=== PATIENT | female | born 1995 | race Caucasian/White ===

== ENCOUNTER → 2017-07-19 12:53 | Outpatient (CLI) | payer MEDICAID, SELFPAY ==
[2017-07-19 14:51] LABS: T4 Free Direct 1.03 ng/dL (0.76-1.46); Thyroid Stim Hormone (TSH) 1.69 uIU/mL (0.358-3.74)
== END ==
PROVIDERS: Family Provider Pediatrics; PCP Pediatrics; Visit Provider Pediatrics
DX: R63.5 Abnormal weight gain (principal)
CPT/HCPCS: 36415; 84439; 84443

== ENCOUNTER → 2018-03-30 15:12 | Outpatient (CLI) | payer MEDICAID, SELFPAY ==
--- NOTE | 2018-03-30 15:14 | RAD_ITS ---
STUDY: X-RAY - CERVICAL SPINE REASON FOR EXAM: Female, 22 years old. Neck pain radiating into right shoulder. TECHNIQUE: 6 view(s) of the cervical spine were obtained. COMPARISON: None FINDINGS: Normal anterior atlantoaxial articulation. Normal odontoid process. There is reversal of the normal lordotic curve, likely positional. Normal vertebral bodies and endplates. Normal disc space heights. Normal visualized intervertebral neuroforamina. The soft tissue structures are unremarkable. RAD/Cerv Spine 4 or 5 Views IMPRESSION: Reversal of the normal lordotic curve, likely positional. No other significant abnormality. Electronically Signed: Bean Fraire MD at 14:17 EST , Service support ,
--- NOTE | 2018-03-30 15:14 | RAD_ITS ---
STUDY: X-RAY - RIGHT HAND REASON FOR EXAM: Previous fracture. TECHNIQUE: 3 view(s) of the hand. COMPARISON: Radiographs 08/20/2015. FINDINGS: Normal radiocarpal articulation. Normal distal radioulnar joint. Normal visualized carpal bones. Normal carpal articulations Normal carpometacarpal articulation of the thumb. Normal second through fifth carpometacarpal joints. There is healed fracture deformity of the fifth metacarpal diaphysis with mild angulation without interval change. Normal metacarpophalangeal joint of the thumb. Normal interphalangeal joint of the thumb. Normal proximal and distal phalanges of the thumb. Normal metacarpophalangeal joints of the second through fifth fingers. Normal proximal and distal interphalangeal joints of the second through fifth fingers. Normal phalanges of the second through fifth fingers. The soft tissue structures are unremarkable. RAD/Hand Min 3 Views IMPRESSION: Healed fracture deformity of the fifth metacarpal. Electronically Signed: Parish Calix MD at 12:30 EST Tel , Service support ,
== END ==
PROVIDERS: Family Provider Pediatrics; PCP Pediatrics; Referring Provider Orthopaedic Surgery; Visit Provider Orthopaedic Surgery
DX: M79.641 Pain in right hand (principal); M54.2 Cervicalgia
CPT/HCPCS: 72050; 73130

== ENCOUNTER 2018-05-03 13:00 | Outpatient (RCR) | payer MEDICAID, SELFPAY ==
--- NOTE | 2018-04-06 18:10 | HP.OTEVAL ---
Patient's Visit Information EDEN REYES is a 22 year old F, referred to Occupational Therapy by Jessica Flores DO, with a diagnosis of h/o R 5th metacarpal fracture. Date of Evaluation: 04/06/18 Occupational Therapist: Gerda Portillo - Subjective Subjective: Pt seen for initial occupational therapy evaluation for stabbing pain in R 5th digit and the entire ulnar side of hand with movement that comes and goes. Pt is R hand dominent. Pt states it's not a normal pain. Pt fx 5th digit 3 yrs ago. Pt indep w/ BADLs/IADLs. 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 - Pain R fifth digit 9 Pain Intensity Range: 0, 9 - Objective Objective/Observation: no edema noted, pt demo good ROM of R 5th digit. - ROM MP: R 5th digit 0'/93', L 5th digit 0'/95' PIP: R 5th digit 0/100, L 5th digit 105 ROM Comments: Pt able to make composite fist R hand - Strength Representative Personal Service: R 40#, L 45# - Edema Other: No edema - Sensation Sensation Comments: Pt has occassional numbness tip of 4th and 5th digit, primarily when pain is severe - Quick DASH-Disab of Arm,Shoulder& Hand Quick DASH Score: 34.0900 - Goals Goal:: Pt will demo no pain greater than 1/10 R 5th digit and ulnar side of hand with movement by d/c from OT services. Goal:: Pt will be educated on adaptive techniques, energy conservation and self massage techniques to decrease pain and discomfort with good understanding and demo 100%x - Rehabilitation General Assessment: Pt demo increased pain with movements of R 5th digit all joints and ulnar side of hand. Pt would benefit from direct occupational therapy services to decrease pain with movement and educate pt on adaptive techniques/energy conservation/joint protection and modalities to assist with decreasing pt's pain. Rehabilitation Potential: Excellent - Anticipated Interventions Anticipated Interventions: Strengthening, Massage, Modalities, Joint Protection/Energy Conservation, Education re Diagnosis, Education re Self Massage Techniques, Home Program - Visit Plan Frequency: 1-2x /Week Duration: 4 Weeks General Plan: decrease pain with movement and educate pt on adaptive techniques/energy conservation/joint protection and modalities and self massage to assist with decreasing pt's pain. TEXT: Thank you for the opportunity to evaluate your patient. For Medicare and Medicare HMO plans, please review the plan of care and approve it. It will need to be FAXED BACK to us at [phone] for Medicare purposes. Please let me know if there are questions or concerns regarding this plan of care. Physician Signature: Date:
--- NOTE | 2018-05-03 16:40 | HP.OTDCSUM ---
HP - OT D/C Summary It has been my pleasure to treat EDEN REYES under orders from Jessica Flores DO, for the diagnosis of h/o R 5th metacarpal fracture for a total of 6 visit(s). Please see the following information for a summary of their discharge status. - Objective Objective/Function: decrease pain R 5th digit and ulnar side of forearm. - Goals Patient Goals: Decrease Pain, Use Hand/Wrist/Arm Normally Again Goal:: Pt will demo no pain greater than 1/10 R 5th digit and ulnar side of hand with movement by d/c from OT services. Goal:: Pt will be educated on adaptive techniques, energy conservation and self massage techniques to decrease pain and discomfort with good understanding and demo 100%x - Plan Plan: d/c OT services at this time. See d/c for all details. - D/C Information Discharge Comments: Pt has been particpating with direct OT services for the past 4 wks to decrease pain of ulnar side of hand and R 5th digit with movement. Pt continues to have increased pain that is inconsistant with ulnar side R hand/ 5th digit. OT has trialed all conservative therapy with use of variety of modalities parafin, fluidotherapy, ultrasound, heat to decrease pain and all modalities temporarily relieve pain but pt continues to have same amount of pain inconsistantly. Pt has been educated on self massage techniques to complete at home for R hand and forearm as well as ulnar nerve glides. D/C OT services at this time secondary to limited progress made with her pain R hand. If there are questions or concerns regarding this patient's occupational therapy, please fell free to call me at [phone]. Thank you for the referral of this patient. Sincerely, Gerda Portillo
== END 2018-05-03 17:34 | disposition home or self-care (01) ==
LOC: OT 13:00
PROVIDERS: Family Provider Pediatrics; PCP Pediatrics; Referring Provider Orthopaedic Surgery; Visit Provider Orthopaedic Surgery
DX: Z87.898 Personal history of other specified conditions (principal)
CPT/HCPCS: 97035; 97110; 97140; 97165; 97530

== ENCOUNTER → 2018-05-31 15:29 | Outpatient (CLI) | payer MEDICAID, SELFPAY ==
--- NOTE | 2018-05-31 15:31 | MRI_ITS ---
HISTORY: RT WRIST PAINhx of 2 fx's of 5th 2 years ago, still has pain ulnar side of wrist up into arm . EXAM: MR Wrist W/O Contrast . TECHNIQUE: Multiplanar and multisequence MR images of the right wrist IV Contrast dosage and agent: None. COMPARISON: Right hand x-ray 03/30/2018 FINDINGS: TRIANGULAR FIBROCARTILAGE COMPLEX: Intact without defect or signal abnormality. Normal distal radial ulnar joint. TENDONS: Negative. No tendinosis, tenosynovitis, or bursitis. CARPA L TUNNEL: Flexor tendons are intact. Median nerve normal in size and signal intensity. LIGAMENTS: The scapholunate and lunotriquetral ligaments are intact. JOINTS: No joint effusion or synovitis. The articular cartilage is preserved. No ganglion cyst formation or bony erosions. BONE: Remote healed fracture of the fifth metacarpal with residual mild angular deformity of this metacarpal. No recent fracture or avascular necrosis. Intact hook of the hamate. Soft tissues: No cellulitis or suspicious fluid collections. No soft tissue edema. MRI/Upper Ext Joint Only(Routine) IMPRESSION: 1. No suspicious findings. No tenosynovitis, ganglion, or inflammatory change identified. 2. Old, healed fracture of the right fifth metacarpal. No complication seen. at 0812 Reported and signed by: Jacobo Mcwilliams MD Electronically Signed: Jacobo Mcwilliams, at 8:11 EST Tel , Service support ,
== END ==
PROVIDERS: Family Provider Pediatrics; PCP Pediatrics; Referring Provider Physician Assistant; Visit Provider Physician Assistant
DX: M25.531 Pain in right wrist (principal); G89.29 Other chronic pain
CPT/HCPCS: 73221